=== PATIENT | male | born 1950 | race Caucasian/White ===

== ENCOUNTER 2020-07-23 21:40 | Emergency (ER) | payer OTHER ==
[~2020-07-23] VITALS: Ht 167.6 cm; Wt 79.4 kg
[2020-07-23] MEDS ORDERED: TETRACAINE HCL/PF 0.5% OPHTHALMIC DROPS 4 ML OP ONE (21:45)
--- NOTE | 2020-07-23 21:45 | NUR ---
Pt reports getting dish soap in his r eye x 3 hours ago. Pt states feeling burning sensation not going away. Denies CP, FEVER, HEADACHE.
[2020-07-23 21:47] VITALS: BP_SYST 161
--- NOTE | 2020-07-23 21:47 | NUR ---
Patient to ER bed 3 to gown for evaluation. Side rails up. Report given to [facility].
--- NOTE | 2020-07-23 21:48 | NUR ---
ER at bedside examining patient.
--- NOTE | 2020-07-23 21:55 | NUR ---
Pt reports tetracaine provided relief to the R eye.
--- NOTE | 2020-07-23 22:05 | NUR ---
Patient given written and verbal discharge instructions and verbalizes understanding. ER MD discussed with patient the results and treatment provided. Patient in stable condition. ID arm band removed. Patient educated on pain management and to follow up with PMD. Opportunity for questions provided and answered. Medication side effect fact sheet provided.
== END 2020-07-23 22:05 | disposition home or self-care (01) ==
LOC: SED 21:40
DX: H10.211 Acute toxic conjunctivitis, right eye (principal); I10 Essential (primary) hypertension
CPT/HCPCS: 99283